=== PATIENT | female | born 1955 | race Caucasian/White ===

== ENCOUNTER 2023-06-13 20:29 | Emergency (ER) | payer OTHER ==
[~2023-06-13] VITALS: Ht 154.9 cm; Wt 72.6 kg
[2023-06-13 21:02] VITALS: BP 148/118; PULSE 84; RESP 18; TEMP 97.2; O2SAT 99
[2023-06-13] MEDS ORDERED: IBUPROFEN 600 MG TAB PO ONE (21:25)
[2023-06-13] MEDS ORDERED: ACETAMINOPHEN EXTRA STRENGTH 500 MG TAB PO ONE (21:25)
[2023-06-13] MEDS ORDERED: ACET-10509 PO (23:31)
== END 2023-06-13 23:41 | disposition home or self-care (01) ==
LOC: MED 20:29
DX: S76.011A Strain of muscle, fascia and tendon of right hip, initial encounter (principal); R10.84 Generalized abdominal pain; R53.1 Weakness; W18.30XA Fall on same level, unspecified, initial encounter; Y93.89 Activity, other specified; Y92.89 Other specified places as the place of occurrence of the external cause; Y99.8 Other external cause status
CPT/HCPCS: 99284

== ENCOUNTER 2024-03-03 14:24 | Observation (INO) | payer MEDICARE, OTHER ==
[~2024-03-03] VITALS: Ht 144.8 cm; Wt 72.6 kg
[~2024-03-03 14:24] MED LIST: ACET500T99 PO
[2024-03-03 15:02] VITALS: BP 153/70; PULSE 68; RESP 18; TEMP 97.2; O2SAT 98
[2024-03-03] MEDS: ONDANSETRON 4 MG/2 ML VIAL IVP ONE (15:45)
[2024-03-03] MEDS: KETOROLAC 30 MG/ML VIAL IVP ONE (15:46)
[2024-03-03 15:50] LABS: BASOPHILS % (AUTO) 1.1 % (0.0-2.0); EOSINOPHILS % (AUTO) 6.2 % (0.0-4.0); HEMATOCRIT 38.1 % (36-48); HEMOGLOBIN 12.7 g/dL (12.0-16.0); LYMPHOCYTES % (AUTO) 33.1 % (20.5-51.1); MEAN CORPUSCULAR HEMOGLOBIN 31 pg (27-31); MEAN CORPUSCULAR HGB CONC 33 g/dL (33-37); MEAN CORPUSCULAR VOLUME 92.4 fL (80-94); MONOCYTES % (AUTO) 8.7 % (1.7-9.3); NEUTROPHILS # (AUTO) 4.1 K/uL (1.8-7.7); NEUTROPHILS % (AUTO) 50.9 % (42.2-75.2); PLATELET COUNT (AUTO) 191 K/uL (140-450); RED BLOOD CELL COUNT(AUTO) 4.12 MIL/uL (4.20-5.40); WHITE BLOOD COUNT (AUTO) 8.1 K/uL (4.8-10.8)
[2024-03-03 15:51] LABS: BASOPHILS # (AUTO) 0.1 K/uL (0.00-0.22); EOSINOPHILS # (AUTO) 0.5 K/uL (0-0.4); LYMPHOCYTES # (AUTO) 2.7 K/uL (2.5-16.5); MONOCYTES # (AUTO) 0.7 K/uL (0.8-1.0)
[2024-03-03 15:57] LABS: ANION GAP 9.2 (8-16); CALCIUM 8.7 mg/dL (8.5-10.1); CARBON DIOXIDE 28.8 mmol/L (21-32); CREATININE 0.7 mg/dL (0.6-1.3)
[2024-03-03 17:07] LABS: APPEARANCE,URINE CLEAR (CLEAR); BILIRUBIN,URINE NEGATIVE (NEGATIVE); BLOOD, URINE NEGATIVE (NEGATIVE); COLOR,URINE YELLOW (YELLOW); LEUKOCYTE ESTERASE ,URINE NEGATIVE (NEGATIVE); NITRITE, URINE NEGATIVE (NEGATIVE); PROTEIN,URINE NEGATIVE (NEGATIVE); UGLUCOSE 3+ (NEGATIVE); UROBILINOGEN,URINE 0.2 EU/dL (0.2 - 1)
[2024-03-03] MEDS ORDERED: IBUP-2213 PO (17:17)
[2024-03-03] MEDS ORDERED: NITR0.4T2 SL (17:17)
[2024-03-03] MEDS ORDERED: ACETAMINOPHEN 325 MG TAB PO PRN (18:35)
[2024-03-03] MEDS ORDERED: POTASSIUM CHLORIDE 10 MEQ TABER PO PRN (18:35)
[2024-03-03] MEDS ORDERED: MAGNESIUM OXIDE 400 MG TAB PO PRN (18:35)
[2024-03-03] MEDS ORDERED: KCL 20 MEQ IN 100 mL PREMIX 200 ML IV PRN (18:35)
[2024-03-03] MEDS ORDERED: MORPHINE SULFATE 4 MG/ML SYR IVP PRN (18:35)
[2024-03-03] MEDS ORDERED: MAG SULF 2000 MG/WATER PREMIX 50 ML IV PRN (18:35)
[2024-03-03] MEDS ORDERED: MORPHINE SULFATE 2 MG/ML SYR IVP PRN (18:35)
[2024-03-03 20:25] VITALS: PULSE 66; RESP 18; O2SAT 98
[2024-03-04 04:00] VITALS: BP 123/61; PULSE 72; PULSE 75; RESP 18; TEMP 96.9; O2SAT 98
[2024-03-04 06:55] LABS: BASOPHILS % (AUTO) 0.6 % (0.0-2.0); EOSINOPHILS # (AUTO) 0.5 K/uL (0-0.4); EOSINOPHILS % (AUTO) 7.3 % (0.0-4.0); HEMATOCRIT 38.3 % (36-48); HEMOGLOBIN 12.6 g/dL (12.0-16.0); LYMPHOCYTES # (AUTO) 2.2 K/uL (2.5-16.5); LYMPHOCYTES % (AUTO) 33.3 % (20.5-51.1); MEAN CORPUSCULAR HEMOGLOBIN 31 pg (27-31); MEAN CORPUSCULAR HGB CONC 33 g/dL (33-37); MEAN CORPUSCULAR VOLUME 93.3 fL (80-94); MONOCYTES # (AUTO) 0.5 K/uL (0.8-1.0); MONOCYTES % (AUTO) 7.8 % (1.7-9.3); NEUTROPHILS # (AUTO) 3.3 K/uL (1.8-7.7); PLATELET COUNT (AUTO) 192 K/uL (140-450); WHITE BLOOD COUNT (AUTO) 6.5 K/uL (4.8-10.8)
[2024-03-04] MEDS ORDERED: MORPHINE SULFATE 2 MG/ML SYR IVP PRN (07:25)
[2024-03-04 07:31] LABS: ALBUMIN 2.9 g/dL (3.4-5.0); ANION GAP 12.7 (8-16); CALCIUM 8.1 mg/dL (8.5-10.1); CARBON DIOXIDE 25.2 mmol/L (21-32); CREATININE 0.8 mg/dL (0.6-1.3); MAGNESIUM 2.1 mg/dL (1.8-2.4); POTASSIUM 3.9 mmol/L (3.5-5.1)
[2024-03-04 07:54] LABS: TOTAL BILIRUBIN 0.4 mg/dL (0.0-1.0); TOTAL PROTEIN, SERUM 6.9 g/dL (6.4-8.2)
[2024-03-04 08:00] VITALS: BP 143/54; PULSE 60; PULSE 70; RESP 17; TEMP 97.5; O2SAT 97
[2024-03-04] MEDS: ATORVASTATIN 20 MG TAB PO SCH (08:21)
[2024-03-04] MEDS: ASPIRIN 81 MG TAB.CHEW PO SCH (08:21)
[2024-03-04] MEDS: LOSARTAN 50 MG TAB PO SCH (09:50)
[2024-03-04] MEDS ORDERED: ATOR20TA40 PO (16:30)
[2024-03-04] MEDS ORDERED: ASPI81CT95 PO (16:30)
[2024-03-04] MEDS ORDERED: LOSA-270 PO (16:30)
[2024-03-04 16:33] VITALS: BP 143/54; PULSE 60; RESP 17; TEMP 97.5
[2024-03-05] MEDS ORDERED: LOSARTAN 50 MG TAB PO SCH (09:00)
== END 2024-03-04 16:55 | disposition home or self-care (01) ==
LOC: MED 14:24 → MTU 18:33
PROVIDERS: ADMIT Hospitalist; ATTEND Hospitalist
DX: R07.9 Chest pain, unspecified (principal); I10 Essential (primary) hypertension; E78.5 Hyperlipidemia, unspecified; I16.0 Hypertensive urgency; R19.7 Diarrhea, unspecified; I25.10 Atherosclerotic heart disease of native coronary artery without angina pectoris; E11.9 Type 2 diabetes mellitus without complications; Z79.899 Other long term (current) drug therapy
CPT/HCPCS: 36415; 70450; 71045; 80048; 80053; 81003; 82948; 83735; 84484; 85025; 87081; 93005; 96372; 96374; 96375; 99285; G0378; J1644; J1885; J2405